=== PATIENT | male | born 1955 | race Caucasian/White ===

== ENCOUNTER 2018-11-09 06:48 | Day surgery (SDC) | payer MEDICAID ==
[2018-11-09] MEDS ORDERED: PROPOFOL 10 MG/ML VIAL IV ONE (06:49)
[2018-11-09] MEDS ORDERED: LIDOCAINE 2% MDV (20MG/ML) 20ML VIAL IV ONE (06:49)
[2018-11-09] MEDS ORDERED: MIDAZOLAM HCL 2MG/2ML VIAL IV ONE (06:49)
[2018-11-09] MEDS ORDERED: FENTANYL PF 100MCG/2ML VIAL IV ONE (06:49)
[2018-11-09] MEDS ORDERED: RINGERS SOLUTION,LACTATED 1,000 ML IV ONE (07:31)
[2018-11-09] MEDS ORDERED: DEXAMETHASONE PRESERVATIVE FREE 10MG/ML VIAL SQ ONE (08:49)
[2018-11-09] MEDS ORDERED: LIDOCAINE 1% W/EPI 1:100,000 MDV 20 ML VIAL SQ ONE (08:49)
[2018-11-09] MEDS ORDERED: BUPIVACAINE 0.5% W/EPI MPF 30 ML VIAL SQ ONE (08:49)
--- NOTE | 2018-11-10 15:30 | Operative Note ---
DATE OF SURGERY: 11/09/2018 PREOPERATIVE DIAGNOSIS: Cervical spondylosis without myelopathy, ICD10 code M47.812. OPERATION: Radiofrequency rhizotomy of bilateral cervical facets 3-4, 4-5, 5-6. INDICATIONS: This patient presents with primary neck pain. Examination showed tenderness of the cervical spine. Range of motion does cause pain to the neck with extension. Diagnostic imaging shows multilevel facet changes. Cervical facet series 75% to 85% pain control. Due to the failure of therapy and success of facet series, patient presents for rhizotomy for more long-term relief. PROCEDURE: Intravenous line, vital sign monitoring, IV sedation, prepped and draped in sterile technique. Under imaging, facet levels cervical spine at 3-4, 4-5, 5-6 bilateral. Each one of these points on the skin infiltrated. A 22-gauge rhizotomy cannula positioned. Stimulation trial was conducted. Rhizotomy burn performed 80 degrees, 90 seconds at each of the sites 3-4, 4-5, 5-6 bilaterally. Local with antiinflammatory into the sites as the needles removed. Topical antibiotic and sterile dressing were not required. He was transported to the recovery room stable. Will monitor and evaluate. KAYLEIGH
== END 2018-11-09 10:09 | disposition home or self-care (01) ==
LOC: SUR 06:48
PROVIDERS: ATTEND Pain Medicine Interventional Pain Medicine
DX: M47.812 Spondylosis without myelopathy or radiculopathy, cervical region (principal); J44.9 Chronic obstructive pulmonary disease, unspecified; J45.909 Unspecified asthma, uncomplicated; G47.33 Obstructive sleep apnea (adult) (pediatric); K21.9 Gastro-esophageal reflux disease without esophagitis; E03.9 Hypothyroidism, unspecified; F90.9 Attention-deficit hyperactivity disorder, unspecified type; E06.3 Autoimmune thyroiditis
CPT/HCPCS: 64633; 64634 ×2; 01936; J1100; J3010; J7120